=== PATIENT | male | born 1975 | race Caucasian/White ===

== ENCOUNTER 2022-09-22 08:33 | Emergency (ER) | payer OTHER ==
[~2022-09-22] VITALS: Ht 180.3 cm; Wt 94.8 kg
--- NOTE | 2022-09-22 08:35 | NUR ---
RECEIVED PT 47 YRS MALE CAME FROM HOME ACCOMPANY BY SON AND awake and alert no sob or chest pain
--- NOTE | 2022-09-22 08:50 | NUR ---
INCERTED ANGO CATHETER G 17 ON RT AC BLOOD DROW AND SENT TO LAB
[2022-09-22] MEDS ORDERED: ASPIRIN 325 MG TABLET PO ONE (09:00)
[2022-09-22 09:07] LABS: BASOPHILS % (AUTO) 0.4 % (0.0-2.0); EOSINOPHILS % (AUTO) 1.7 % (0.0-6.0); HEMATOCRIT 47 % (39-51); HEMOGLOBIN 15.7 g/dL (13.5-17.5); LYMPHOCYTES # (AUTO) 2.7 K/uL (0.8-4.8); LYMPHOCYTES % (AUTO) 32.4 % (20.0-44.0); MEAN CORPUSCULAR HGB CONC 33 g/dl (31.0-36.0); MEAN CORPUSCULAR VOLUME 93 fL (80-96); MONOCYTES # (AUTO) 0.4 K/uL (0.1-1.30); MONOCYTES % (AUTO) 4.7 % (2.0-12.0); NEUTROPHILS # (AUTO) 5.1 K/uL (1.8-8.9); NEUTROPHILS % (AUTO) 60.8 % (43.0-81.0); PLATELET COUNT (AUTO) 194 K/uL (150-450); RED BLOOD CELL COUNT(AUTO) 5.12 MIL/uL (4.5-6.0); WHITE BLOOD COUNT (AUTO) 8.4 K/uL (4.3-11.0)
[2022-09-22] MEDS ORDERED: ASPIRIN 325 MG TABLET ONE (09:07)
[2022-09-22 09:24] LABS: CALCIUM, SERUM 9.2 mg/dL (8.5-10.1); CARBON DIOXIDE 28 mmol/L (21-32); CHLORIDE 105 mmol/L (98-107); CREATININE 1.1 mg/dL (0.6-1.3); GLUCOSE 119 mg/dL (74-106); POTASSIUM 4.4 mmol/L (3.5-5.1); SODIUM SERUM 142 mmol/L (136-145); UREA NITROGEN, BLOOD 14 mg/dL (7-18)
--- NOTE | 2022-09-22 09:25 | NUR ---
C XRAY DONE AT BED SIDE
--- NOTE | 2022-09-22 10:00 | NUR ---
DINESES CHEST PAIN OR SOB
--- NOTE | 2022-09-22 10:10 | NUR ---
DR. GALAN SPOOK WITH PT ABOUT PALN OF CARE
--- NOTE | 2022-09-22 10:30 | NUR ---
IV removed. Catheter intact and site benign. Pressure and 4x4 applied to site. No bleeding noted.
--- NOTE | 2022-09-22 10:33 | NUR ---
Patient discharged to home in stable condition. Written and verbal after care instructions given. Patient verbalizes understanding of instruction.
[2022-09-22 10:43] VITALS: BP 143/86
== END 2022-09-22 10:45 | disposition home or self-care (01) ==
LOC: ER 08:52
DX: R07.9 Chest pain, unspecified (principal); E11.9 Type 2 diabetes mellitus without complications; F17.200 Nicotine dependence, unspecified, uncomplicated
CPT/HCPCS: 36415; 71045-TC; 80048-TC; 83880; 84484-TC; 85025-TC